=== PATIENT | male | born 1960 ===

== ENCOUNTER → 2019-05-17 | Day surgery (SDC) | payer OTHER ==
[~2019-05-17] VITALS: Ht 160 cm; Wt 63.5 kg
[2019-05-17 06:59] VITALS: BP 149/88
[2019-05-17 14:19] VITALS: BP 143/88
== END | disposition home or self-care (01) ==
LOC: DS 06:27 → OR 08:30 → DS 08:30
DX: K11.8 Other diseases of salivary glands (principal); D11.0 Benign neoplasm of parotid gland; E11.22 Type 2 diabetes mellitus with diabetic chronic kidney disease; I12.9 Hypertensive chronic kidney disease with stage 1 through stage 4 chronic kidney disease, or unspecified chronic kidney disease; N18.9 Chronic kidney disease, unspecified; E66.3 Overweight; J45.909 Unspecified asthma, uncomplicated; K21.9 Gastro-esophageal reflux disease without esophagitis; I25.119 Atherosclerotic heart disease of native coronary artery with unspecified angina pectoris; D64.9 Anemia, unspecified; F17.210 Nicotine dependence, cigarettes, uncomplicated; F03.90 Unspecified dementia, unspecified severity, without behavioral disturbance, psychotic disturbance, mood disturbance, and anxiety; Z68.24 Body mass index [BMI] 24.0-24.9, adult; Z86.73 Personal history of transient ischemic attack (TIA), and cerebral infarction without residual deficits
CPT/HCPCS: J0330; J0690; J2250; J2704; J3010; J3490; J7120